=== PATIENT | male | born 1965 | race Caucasian/White ===

== ENCOUNTER 2017-12-17 11:43 | Emergency (ER) | payer MEDICAID, OTHER ==
[2017-12-17] MEDS ORDERED: TDAP ADULT 0.5 ML INJ (BOOSTRIX) IM ONE ×2 (11:54→12:22)
[2017-12-17] MEDS ORDERED: LET GEL TOPICAL 1 EA SYR TP ONE ×2 (11:54→11:55)
[2017-12-17 11:57] VITALS: BP 143/99
--- NOTE | 2017-12-17 11:59 | EDPHY ---
H & P Time Seen by Provider: 12/17/17 11:45 HPI/ROS: This patient sustained an injury from a sharp chisel point at home. He explains he was trying to fix a wood handle and the chisel slipped and caused a laceration to the left hand palm around the area of the hyopthenar eminence shortly prior to arrival with moderate bleeding that slowed with direct pressure. He reports moderate pain from the injury and he denies any other associated complaints. He drove himself here by private vehicle for evaluation. ROS: Neuro: No numbness or tingling. No difficulty moving fingers in the affected hand. Musculoskeletal: No bony pain 5 point ROS is otherwise negative Social History: Patient admitted drinking 3 beers today prior to arrival. Given this I explained that he would need to get a ride home or do a Breathalyzer. He agreed to have a friend or family member drive him home. Physical Exam: Physical Exam Vital signs are normal. General: No acute distress Lungs: No respiratory distress. HEENT: Alcohol halitosis Cardiac: Brisk capillary refill is intact throughout. Pulses are 2+ and symmetric in the affected extremity. Skin: No rash or pallor. Left hand: Patient has a 1.5 cm full-thickness laceration with mild bleeding palmar aspect of left hand at the area of the hypothenar eminence with no foreign bodies on direct examination. Subcutaneous tissues evident but no deeper structures appear to be injured. The patient is able to move all fingers without difficulty Neuro: Alert and oriented x3 without clinical intoxication with no sensorimotor deficits in the affected extremity. Initial differential diagnosis: Laceration, tendon injury, foreign body Constitutional: Initial Vital Signs Temperature (C) 36.9 C 12/17/17 11:48 Heart Rate 115 H 12/17/17 11:48 Respiratory Rate 16 12/17/17 11:48 Blood Pressure 143/99 H 12/17/17 11:48 O2 Sat (%) 94 12/17/17 11:48 O2 Delivery Mode Room Air Allergies/Adverse Reactions: codeine [Codeine] Allergy (Verified 12/17/17 11:48) Pt reports Itching Home Medications: Medication Instructions Recorded Benadryl 12/17/17 Lisinopril 12/17/17 Naproxen Sodium 12/17/17 Quetiapine Fumarate 12/17/17 Ranitidine HCl 12/17/17 MDM/Departure - MDM Procedures: The wound is 1.5 cm full-thickness no foreign bodies on direct examination. Subcutaneous tissues evident but there is no evidence of tendon injury her other deeper structures injured. I cleaned the wound with baby shampoo and saline with aura scrubbing The wound was prepped and draped in the normal sterile fashion. The wound was anesthetized using let solution followed by 1% plain lidocaine mixed 50 50 with 0.5% Marcaine, 27 gauge needle, 3 mL with good effect The edges were reapproximated using 4 0 Prolene -6 running sutures with good hemostasis and cosmesis. The patient tolerated the procedure well. There were no complications. Medications Given: Discontinued Medications Diphtheria/Tetanus/Acell Pertussis (Boostrix) 0.5 ml IM .ONCE ONE Stop: 12/17/17 12:23 Last Admin: 12/17/17 12:37 Dose: 0.5 ml Tetracaine/Epinephrine/Lidocaine (Let Gel Topical) 1 ea TP EDNOW ONE Stop: 12/17/17 11:56 Last Admin: 12/17/17 11:59 Dose: 1 ea ED Course/Re-evaluation: Patient was given in tetanus immunization and we counseled regarding wound care. Discussion: Simple hand laceration without evidence of neurovascular compromise , tendon injury or other associated injuries. - Depart Disposition: Home, Routine, Self-Care Clinical Impression: Hand laceration Qualifiers: Encounter type: initial encounter Foreign body presence: without foreign body Laterality: left Qualified Code(s): S61.412A - Laceration without foreign body of left hand, initial encounter Condition: Good Instructions: Care For Your Stitches (ED) Additional Instructions: Diagnosis: Hand laceration Plan: Keep the wound clean and dry for the next 2 days then clean daily with warm soapy water Return for suture removal in 10-12 days Return sooner if you develop redness, discharge or other concerns for infection. Referrals: SHIKHA CROCKETT [Other] - As per Instructions
== END 2017-12-17 12:50 | disposition home or self-care (01) ==
LOC: CED 11:43
PROC: 0HQGXZZ Repair Left Hand Skin, External Approach (ICD-10-PCS; principal; 2017-12-17)
DX: S61.412A Laceration without foreign body of left hand, initial encounter (principal); W26.9XXA Contact with unspecified sharp object(s), initial encounter; Y93.E9 Activity, other interior property and clothing maintenance; Y92.019 Unspecified place in single-family (private) house as the place of occurrence of the external cause